=== PATIENT | female | born 2000 | race Caucasian/White ===

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

== ENCOUNTER 2023-05-31 10:20 | Emergency (ER) | payer MEDICAID ==
[~2023-05-31] VITALS: Ht 165.1 cm; Wt 56.7 kg
[~2023-05-31 10:20] MED LIST: MECL1TAB32 PO
[2023-05-31 11:36] VITALS: BP 103/60; PULSE 92; RESP 20; TEMP 97.5; O2SAT 98
[2023-05-31] MEDS ORDERED: MONT-8 PO (11:40)
[2023-05-31] MEDS ORDERED: AMOX875T3 PO (11:40)
== END 2023-05-31 11:43 | disposition home or self-care (01) ==
LOC: ER 10:20
DX: J02.9 Acute pharyngitis, unspecified (principal)